=== PATIENT | male | born 1975 | race Caucasian/White ===

== ENCOUNTER 2016-10-11 19:32 | Inpatient (IN) | payer BC ==
[2016-10-11] MEDS ORDERED: Ketorolac 30 MG/ML SDV IVPUSH ONE (19:37)
[2016-10-11] MEDS ORDERED: Famotidine 20 MG/2 ML SDV IVPUSH ONE (19:37)
[2016-10-11] MEDS ORDERED: Nitroglycerin 0.4 MG Tab.SL SL ONE (19:37)
[2016-10-11] MEDS ORDERED: Sodium Chloride 0.9% 2.5 ML Syringe FLUSH PRN (19:37)
[2016-10-11] MEDS ORDERED: Aspirin 81 MG Tab.Chew PO ONE (19:37)
[2016-10-11] MEDS ORDERED: Sodium Chloride 0.9% 1,000 ML IV ONE (19:44)
[2016-10-11] MEDS: Alum Hydrox/Mag Hydrox/Simeth 15 ML, Metoclopramide 5 MG, Lidocaine 2% 5 ML PO ONE ×6 (19:44→20:03)
--- NOTE | 2016-10-11 19:46 | EDM.PDOC ---
ED HPI GENERAL MEDICAL PROBLEM - General Chief Complaint: Chest Pain Stated Complaint: CHEST PAIN, UPPER ABDOMINAL PAIN Time Seen by Provider: 10/11/16 19:46 Source of Information: Reports: Patient History Limitations: Reports: No Limitations - History of Present Illness INITIAL COMMENTS - FREE TEXT/NARRATIVE: History of present illness: 47-year-old male presenting with acute onset of upper right quadrant pain. Patient indicates he has a history of pancreatitis and this pain is in the same area but it is also in his chest he indicates it feels like a poker stabbing through him. Review of systems: As per history of present illness and below otherwise all systems reviewed and negative. Past medical history: As per history of present illness and as reviewed below otherwise noncontributory. Surgical history: As per history of present illness and as reviewed below otherwise noncontributory. Social history: No reported history of drug or alcohol abuse. Family history: As per history of present illness and as reviewed below otherwise noncontributory. Physical exam: HEENT: Atraumatic, normocephalic, pupils reactive, negative for conjunctival pallor or scleral icterus, mucous membranes moist, throat clear, neck supple, nontender, trachea midline. Lungs: Clear to auscultation, breath sounds equal bilaterally, chest nontender. Heart: S1S2, regular, negative for clicks, rubs, or JVD. Abdomen: Soft, exquisite tenderness in bilateral upper quads radiating up into the chest, Negative for masses or hepatosplenomegaly. Negative for costovertebral tenderness. Pelvis: Stable nontender. Genitourinary: Deferred. Rectal: Deferred. Extremities: Atraumatic, negative for cords or calf pain. Neurovascular unremarkable. Neuro: Awake, alert, oriented. Cranial nerves II through XII unremarkable. Cerebellum unremarkable. Motor and sensory unremarkable throughout. Exam nonfocal. CT positive for pancreatitis Diagnostics: [CBC, CMP, amylase, lipase, CT of the abdomen and chest] Therapeutics: [IV fluid, Dilaudid, Toradol] Impression: [Increased tightness] Plan: [[facility] and IV fluids as well as pain management] Definitive disposition and diagnosis as appropriate pending reevaluation and review of above. Epigastric Pain Score (Numeric/FACES): 8 - Related Data Allergies Allergy/AdvReac Type Severity Reaction Status Date / Time No Known Allergies Allergy Verified 10/11/16 19:38 Home Meds: Home Meds Omeprazole Magnesium [Prilosec Otc] 20 mg PO DAILY 10/11/16 [History] Past Medical History Gastrointestinal History: Reports: Pancreatitis - Past Surgical History GI Surgical History: Reports: Cholecystectomy Social & Family History - Family History GI: Reports: Pancreatitis - Tobacco Use Smoking Status *Q: Current Every Day Smoker Years of Tobacco use: 20 Packs/Tins Daily: 1 - Caffeine Use Caffeine Use: Reports: Coffee - Recreational Drug Use Recreational Drug Use: No ED ROS GENERAL - Review of Systems Review Of Systems: See Below (See history of present illness) ED EXAM, GENERAL - Physical Exam Exam: See Below (See history of present illness) Course - Vital Signs Last Recorded V/S: Last Vital Signs Temp 36.4 C 10/11/16 19:38 Pulse 82 10/11/16 21:02 Resp 19 10/11/16 21:02 BP 154/104 H 10/11/16 21:02 Pulse Ox 95 10/11/16 21:02 - Orders/Labs/Meds Orders: Active Orders 24 hr Category Date Time Status Cardiac Monitoring [RC] . DIRECTED Care 10/11/16 19:37 Active EKG Documentation Completion [RC] STAT Care 10/11/16 19:38 Active Abdomen Pelvis w Cont [CT] Stat Exams 10/11/16 20:14 Ordered Chest 1V Frontal [CR] Stat Exams 10/11/16 19:37 Ordered Chest w Cont [CT] Stat Exams 10/11/16 20:35 Ordered UA W/MICROSCOPIC [URIN] Stat Lab 10/11/16 19:37 Uncollected Sodium Chloride 0.9% [Saline Flush] Med 10/11/16 19:37 Active 10 ml FLUSH ASDIRECTED PRN Sodium Chloride 0.9% [Saline Flush] Med 10/11/16 19:37 Active 2.5 ml FLUSH ASDIRECTED PRN Saline Lock Insert [OM.PC] Stat Oth 10/11/16 19:37 Ordered Medication Orders Sodium Chloride (Saline Flush) 10 ml FLUSH ASDIRECTED PRN PRN Reason: Keep Vein Open Last Admin: 10/11/16 19:54 Dose: 10 ml Sodium Chloride (Saline Flush) 2.5 ml FLUSH ASDIRECTED PRN PRN Reason: Keep Vein Open Last Admin: 10/11/16 19:54 Dose: 2.5 ml Labs: Laboratory Tests 10/11/16 10/11/16 10/11/16 Range/Units 19:35 19:35 19:35 WBC 12.46 H (4.0-11.0) K/uL RBC 5.29 (4.50-5.90) M/uL Hgb 16.6 (13.0-17.0) g/dL Hct 47.0 (38.0-50.0) % MCV 88.8 (80.0-98.0) fL MCH 31.4 (27.0-32.0) pg MCHC 35.3 (31.0-37.0) g/dL RDW Std Deviation 41.6 (28.0-62.0) fl RDW Coeff of Gabby 13 (11.0-15.0) % Plt Count 301 (150-400) K/uL MPV 9.80 (7.40-12.00) fL Neut % (Auto) 55.6 (48.0-80.0) % Lymph % (Auto) 35.6 (16.0-40.0) % [place] % (Auto) 7.1 (0.0-15.0) % Eos % (Auto) 1.4 (0.0-7.0) % Baso % (Auto) 0.3 (0.0-1.5) % Neut # (Auto) 6.9 H (1.4-5.7) K/uL Lymph # (Auto) 4.4 H (0.6-2.4) K/uL [place] # (Auto) 0.9 H (0.0-0.8) K/uL Eos # (Auto) 0.2 (0.0-0.7) K/uL Baso # (Auto) 0.0 (0.0-0.1) K/uL Nucleated RBC % 0.0 /100WBC Nucleated RBCs # 0 K/uL Sodium 142 (136-146) mmol/L Potassium 4.2 (3.5-5.1) mmol/L Chloride 109 (98-110) mmol/L Carbon Dioxide 23 (21-31) mmol/L BUN 11 (6.0-23.0) mg/dL Creatinine 1.1 (0.6-1.5) mg/dL Est Cr Clr Drug Dosing 64.11 mL/min Estimated GFR (MDRD) > 60.0 ml/min Glucose 103 (60-110) mg/dL Calcium 9.7 (8.8-10.8) mg/dL Total Bilirubin 0.5 (0.1-1.5) mg/dL AST 17 (5-40) IU/L ALT 27 (8-54) IU/L Alkaline Phosphatase 100 (40-150) Troponin I < 0.10 (0.0-0.29) NG/ML Total Protein 8.2 H (6.0-8.0) g/dL Albumin 4.8 (3.5-5.0) g/dL Globulin 3.4 (2.0-3.5) g/dL Albumin/Globulin Ratio 1.4 (1.3-2.8) Amylase 66 (10-90) U/L Lipase 289 H (7-80) U/L Meds: Medications Generic Name Dose Route Start Last Admin Trade Name Freq PRN Reason Stop Dose Admin Sodium Chloride 10 ml 10/11/16 19:37 10/11/16 21:01 Saline Flush FLUSH 10 ml ASDIRECTED PRN Administration Keep Vein Open Sodium Chloride 2.5 ml 10/11/16 19:37 10/11/16 19:54 Saline Flush FLUSH 2.5 ml ASDIRECTED PRN Administration Keep Vein Open Discontinued Medications Generic Name Dose Route Start Last Admin Trade Name Freq PRN Reason Stop Dose Admin Aspirin 324 mg 10/11/16 19:37 10/11/16 19:44 Aspirin PO 10/11/16 19:38 324 mg ONETIME ONE Administration Al Hydroxide/Mg Hydroxide 15 0 ml 10/11/16 19:37 10/11/16 20:03 ml/ Metoclopramide HCl 5 mg/ PO 10/11/16 19:38 Not Given Lidocaine HCl 5 ml ONETIME ONE Famotidine 20 mg 10/11/16 19:37 10/11/16 19:46 Pepcid IVPUSH 10/11/16 19:38 20 mg ONETIME ONE Administration Fentanyl 50 mcg 10/11/16 19:54 10/11/16 20:01 Sublimaze IVPUSH 10/11/16 19:55 50 mcg ONETIME ONE Administration Hydromorphone HCl 2 mg 10/11/16 20:55 10/11/16 21:00 Dilaudid IVPUSH 10/11/16 20:56 2 mg ONETIME ONE Administration Sodium Chloride 1,000 mls @ 999 mls/hr 10/11/16 19:44 10/11/16 19:48 Normal Saline IV 10/11/16 20:44 999 mls/hr .BOLUS ONE Administration Iopamidol 100 ml 10/11/16 20:25 10/11/16 20:26 Isovue Multipack-370 (76%) IVPUSH 10/11/16 20:26 100 ml ONETIME STA Administration Ketorolac Tromethamine 30 mg 10/11/16 19:37 10/11/16 19:46 Toradol IVPUSH 10/11/16 19:38 30 mg ONETIME ONE Administration Nitroglycerin 0.4 mg 10/11/16 19:37 10/11/16 19:52 Nitrostat SL 10/11/16 19:38 0.4 mg ONETIME ONE Administration Ondansetron HCl 4 mg 10/11/16 19:47 10/11/16 19:49 Zofran IVPUSH 10/11/16 19:48 4 mg ONETIME ONE Administration Departure - Departure Time of Disposition: 21:49 Disposition: Refer to Observation Condition: Good Clinical Impression: Pancreatitis - Discharge Information Forms: ED Department Discharge - My Orders Last 24 Hours: My Active Orders 10/11/16 19:37 Cardiac Monitoring [RC] . DIRECTED Chest 1V Frontal [CR] Stat UA W/MICROSCOPIC [URIN] Stat Sodium Chloride 0.9% [Saline Flush] 10 ml FLUSH ASDIRECTED PRN Sodium Chloride 0.9% [Saline Flush] 2.5 ml FLUSH ASDIRECTED PRN Saline Lock Insert [OM.PC] Stat 10/11/16 19:38 EKG Documentation Completion [RC] STAT 10/11/16 20:14 Abdomen Pelvis w Cont [CT] Stat 10/11/16 20:35 Chest w Cont [CT] Stat - Assessment/Plan Last 24 Hours: My Active Orders 10/11/16 19:37 Cardiac Monitoring [RC] . DIRECTED Chest 1V Frontal [CR] Stat UA W/MICROSCOPIC [URIN] Stat Sodium Chloride 0.9% [Saline Flush] 10 ml FLUSH ASDIRECTED PRN Sodium Chloride 0.9% [Saline Flush] 2.5 ml FLUSH ASDIRECTED PRN Saline Lock Insert [OM.PC] Stat 10/11/16 19:38 EKG Documentation Completion [RC] STAT 10/11/16 20:14 Abdomen Pelvis w Cont [CT] Stat 10/11/16 20:35 Chest w Cont [CT] Stat
[2016-10-11] MEDS ORDERED: Ondansetron 4 MG/2 ML SDV IVPUSH ONE (19:47)
[2016-10-11] MEDS ORDERED: fentaNYL 100 MCG/2 ML SDV IVPUSH ONE (19:54)
[2016-10-11] MEDS: Sodium Chloride 0.9% 10 ML Syringe FLUSH PRN ×3 (19:54→21:01)
[2016-10-11 20:11] LABS: CHLORIDE,CL 109 mmol/L (98-110); SODIUM,NA 142 mmol/L (136-146)
[2016-10-11] MEDS ORDERED: Iopamidol 755 MG/ML 500 ML Multipack Bottle IVPUSH STA (20:25)
[2016-10-11] MEDS ORDERED: HYDROmorphone 2 MG/ML Syringe IVPUSH ONE (20:55)
[2016-10-11] MEDS ORDERED: Temazepam 15 MG Cap PO PRN (22:44)
[2016-10-11] MEDS: Sodium Chloride 0.9% 1,000 ML IV SCH (22:56)
[2016-10-11] MEDS: HYDROmorphone 2 MG/ML Syringe IVPUSH PRN (22:56)
[2016-10-12] MEDS: HYDROmorphone 2 MG/ML Syringe IVPUSH PRN ×4 (00:58→08:06)
[2016-10-12] MEDS ORDERED: Sodium Chloride 0.9% 1,000 ML IV ONE (04:58)
[2016-10-12 05:53] LABS: CHLORIDE,CL 111 mmol/L (98-110); SODIUM,NA 140 mmol/L (136-146)
[2016-10-12] MEDS: Sodium Chloride 0.9% 1,000 ML IV SCH ×3 (08:09→23:41)
[2016-10-12] MEDS ORDERED: Ondansetron 4 MG/2 ML SDV IVPUSH PRN (08:22)
[2016-10-12] MEDS: HYDROmorphone/Normal Saline 6 MG/30 ML PCA Vial IV PRN (08:36)
[2016-10-12] MEDS: Pantoprazole 40 MG in Sodium Chloride 0.9% 10 ML IVPUSH SCH ×2 (08:42→21:17)
[2016-10-12] MEDS: Enoxaparin 40 MG/0.4 ML Syringe SUBCUT SCH (09:04)
--- NOTE | 2016-10-12 09:21 | PCM.HP ---
H&P History of Present Illness - General Date of Service: 10/12/16 Admit Problem/Dx: Acute on chronic pancreatitis Source of Information: Patient History Limitations: Reports: No Limitations - History of Present Illness Initial Comments - Free Text/Narative: The patient is a 41-year-old gentleman who is presented to the emergency department yesterday with a complaint of midepigastric abdominal pain. 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 Patient says that he has had approximately 10 episodes of pancreatitis over the past couple years. The patient does have multiple family members who have had pancreectomy secondary to these complications. The patient today says that he has had increasing pain in his epigastric area and he is completely aware of the acute on chronic nature of the pancreatitis. The patient had his gallbladder removed last year and he does not consume alcohol. The patient also has had nausea associated with this as well as very severe pain. The patient has been in his usual state of health up at the present time and normally takes omeprazole chronically. The patient says that he has a doctor in [place] that he sees on a regular basis for his pancreatic issues. The patient has denied any dizziness or lightheadedness. He has had no diarrhea or constipation. No melena. Onset of Symptoms: Reports: Sudden Duration of Symptoms: Reports: Chronic, Getting Worse Location: Reports: Abdomen Quality: Reports: Same as Previous Episode, Sharp, Stabbing Severity: Moderate Improves with: Reports: Medication Worsens with: Reports: Eating Associated Symptoms: Reports: Nausea/Vomiting Epigastric Pain Score (Numeric/FACES): 7 - Related Data Allergies/Adverse Reactions: Allergies Allergy/AdvReac Type Severity Reaction Status Date / Time No Known Allergies Allergy Verified 10/11/16 19:38 Home Medications: Home Meds Omeprazole Magnesium [Prilosec Otc] 20 mg PO DAILY 10/11/16 [History] Past Medical History HEENT History: Reports: None Cardiovascular History: Reports: None Respiratory History: Reports: None Gastrointestinal History: Reports: GERD, Pancreatitis Genitourinary History: Reports: None Musculoskeletal History: Reports: None Neurological History: Reports: None Psychiatric History: Reports: None Endocrine/Metabolic History: Reports: None Hematologic History: Reports: None Oncologic (Cancer) History: Reports: None Dermatologic History: Reports: None - Infectious Disease History Infectious Disease History: Reports: None - Past Surgical History GI Surgical History: Reports: Cholecystectomy Social & Family History - Family History GI: Reports: Pancreatitis - Tobacco Use Smoking Status *Q: Current Every Day Smoker Years of Tobacco use: 20 Packs/Tins Daily: 1 - Caffeine Use Caffeine Use: Reports: Coffee - Recreational Drug Use Recreational Drug Use: No H&P Review of Systems - Review of Systems: Review Of Systems: See Below General: Reports: Malaise, Weakness, Decreased Appetite HEENT: Reports: No Symptoms Pulmonary: Reports: No Symptoms Cardiovascular: Reports: No Symptoms Gastrointestinal: Reports: Abdominal Pain, Decreased Appetite, Nausea Genitourinary: Reports: No Symptoms Musculoskeletal: Reports: No Symptoms Skin: Reports: No Symptoms Psychiatric: Reports: No Symptoms Neurological: Reports: No Symptoms Hematologic/Lymphatic: Reports: No Symptoms Immunologic: Reports: No Symptoms Exam - Exam Exam: See Below - Vital Signs Vital Signs: Last Vital Signs Temp 36.6 C 10/12/16 08:00 Pulse 90 10/12/16 08:00 Resp 16 10/12/16 08:00 BP 133/84 10/12/16 08:00 Pulse Ox 94 L 10/12/16 08:00 Weight: 85.1 kg - Exam Quality Assessment: No: Supplemental Oxygen General: Alert, Oriented, Cooperative, Mild Distress HEENT: Conjunctiva Clear, EACs Clear, Mucosa Moist & Rondo, Nares Patent Neck: Supple, Trachea Midline Lungs: Clear to Auscultation, Normal Respiratory Effort Cardiovascular: Regular Rate, Regular Rhythm Abdomen: Normal Bowel Sounds, Soft, Tenderness. No: Guarding, Rigidity, Rebound Back Exam: Normal Inspection, Full Range of Motion Extremities: Normal Inspection Skin: Warm, Dry, Intact Neurological: Cranial Nerves Intact, Normal Gait Neuro Extensive - Mental Status: Alert, Oriented x3 Psychiatric: Alert, Normal Affect, Normal Mood - Patient Data Lab Results Last 24 hrs: Laboratory Results - last 24 hr 10/12/16 10/12/16 10/12/16 Range/Units 05:22 05:22 08:17 WBC 13.86 H (4.0-11.0) K/uL RBC 4.87 (4.50-5.90) M/uL Hgb 14.8 (13.0-17.0) g/dL Hct 44.2 (38.0-50.0) % MCV 90.8 (80.0-98.0) fL MCH 30.4 (27.0-32.0) pg MCHC 33.5 (31.0-37.0) g/dL RDW Std Deviation 42.8 (28.0-62.0) fl RDW Coeff of Gabby 13 (11.0-15.0) % Plt Count 261 (150-400) K/uL MPV 9.80 (7.40-12.00) fL Neut % (Auto) 64.9 (48.0-80.0) % Lymph % (Auto) 27.3 (16.0-40.0) % [place] % (Auto) 6.7 (0.0-15.0) % Eos % (Auto) 0.9 (0.0-7.0) % Baso % (Auto) 0.2 (0.0-1.5) % Neut # (Auto) 9.0 H (1.4-5.7) K/uL Lymph # (Auto) 3.8 H (0.6-2.4) K/uL [place] # (Auto) 0.9 H (0.0-0.8) K/uL Eos # (Auto) 0.1 (0.0-0.7) K/uL Baso # (Auto) 0.0 (0.0-0.1) K/uL Nucleated RBC % 0.0 /100WBC Nucleated RBCs # 0 K/uL Sodium 140 (136-146) mmol/L Potassium 4.5 (3.5-5.1) mmol/L Chloride 111 H (98-110) mmol/L Carbon Dioxide 25 (21-31) mmol/L BUN 14 (6.0-23.0) mg/dL Creatinine 0.9 (0.6-1.5) mg/dL Est Cr Clr Drug Dosing 111.53 mL/min Estimated GFR (MDRD) > 60.0 ml/min Glucose 97 (60-110) mg/dL Calcium 8.6 L (8.8-10.8) mg/dL Phosphorus 4.0 (2.4-4.7) mg/dL Magnesium 1.9 (1.5-2.3) mEq/L Total Bilirubin 0.4 (0.1-1.5) mg/dL AST 48 H (5-40) IU/L ALT 50 (8-54) IU/L Alkaline Phosphatase 90 (40-150) Lactate Dehydrogenase 184 (125-220) IU/L Total Protein 6.7 (6.0-8.0) g/dL Albumin 4.1 (3.5-5.0) g/dL Globulin 2.6 (2.0-3.5) g/dL Albumin/Globulin Ratio 1.6 (1.3-2.8) Lipase 1179 H (7-80) U/L Urine Color YELLOW Urine Appearance CLEAR Urine pH 5.5 (5.0-8.0) Ur Specific [place] 1.020 (1.001-1.035) Urine Protein NEGATIVE (NEGATIVE) mg/dL Urine Glucose (UA) NEGATIVE (NEGATIVE) mg/dL Urine Ketones NEGATIVE (NEGATIVE) mg/dL Urine Occult Blood NEGATIVE (NEGATIVE) Urine Nitrite NEGATIVE (NEGATIVE) Urine Bilirubin NEGATIVE (NEGATIVE) Urine Urobilinogen 0.2 (<2.0) EU/dL Ur Leukocyte Esterase NEGATIVE (NEGATIVE) Urine RBC 0-1 (0-2/HPF) Urine WBC 0-2 (0-5/HPF) Ur Epithelial Cells RARE (NONE-FEW) Amorphous Sediment RARE (NEGATIVE) Urine Bacteria RARE (NEGATIVE) Result Diagrams: 10/12/16 05:22 10/12/16 05:22 *Q Meaningful Use (ADM) - VTE *Q VTE Criteria *Q: - VTE Risk Assess *Q Each Risk Factor Represents 1 Point: Age 41 - 59 years Total Score 1 Point Risk Factors: 1 - Stroke *Q Stroke Criteria *Q: - AMI *Q AMI Criteria *Q: - Problem List (1) Pancreatitis, recurrent SNOMED Code(s): 283213034 ICD Code: K86.1 - OTHER CHRONIC PANCREATITIS Status: Acute Priority: High Current Visit: Yes Problem Details: Acute on chronic, nonalcoholic non- gallbladder, pancreatic divisum (2) Leukocytosis SNOMED Code(s): 436120061, 285631010 ICD Code: D72.829 - ELEVATED WHITE BLOOD CELL COUNT, UNSPECIFIED Status: Acute Priority: High Current Visit: Yes Problem List Initiated/Reviewed/Updated: Yes Orders Last 24hrs: Active Orders 24 hr Category Date Time Status Admission Status [Patient Status] [ADT] Routine ADT 10/11/16 22:15 Active Patient Status [ADT] Routine ADT 10/12/16 08:39 Active Ambulate [RC] PER UNIT ROUTINE Care 10/12/16 08:40 Active Oxygen Therapy [RC] PRN Care 10/12/16 08:39 Active Up ad Janet [RC] ASDIRECTED Care 10/12/16 08:39 Active VTE/DVT Education [RC] PER UNIT ROUTINE Care 10/12/16 08:39 Active Vital Signs [RC] Q4H Care 10/12/16 08:39 Active NPO [Nothing Per Oral Diet] [DIET] Diet 10/11/16 Dinner Active Nothing per Oral Now Diet [DIET] Diet 10/12/16 Lunch Active Enoxaparin [Lovenox] Med 10/12/16 09:00 Active 40 mg SUBCUT DAILY HYDROmorphone/Normal Saline [Dilaudid HOME CARE LIAISON 6 MG in NS 30 Med 10/12/16 08:19 Active ML] 6 mg IV ASDIRECTED PRN Ondansetron [Zofran] Med 10/12/16 08:22 Active 4 mg IVPUSH Q4H PRN Pantoprazole [ProTONIX IV] 40 mg Med 10/12/16 09:00 Active Sodium Chloride 0.9% [Normal Saline] 10 ml IVPUSH BID Sodium Chloride 0.9% [Normal Saline] 1,000 ml Med 10/11/16 22:45 Active IV ASDIRECTED Temazepam [Restoril] Med 10/11/16 22:44 Active 15 mg PO BEDTIME PRN Resuscitation Status Routine Resus Stat 10/12/16 08:39 Ordered Medication Orders Enoxaparin Sodium (Lovenox) 40 mg SUBCUT DAILY [facility] Last Admin: 10/12/16 09:04 Dose: 40 mg Hydromorphone HCl (Dilaudid [employer] 6 Mg In Ns 30 Ml) 6 mg IV ASDIRECTED PRN; Protocol PRN Reason: Pain Last Admin: 10/12/16 08:36 Dose: 6 mg Sodium Chloride (Normal Saline) 1,000 mls @ 125 mls/hr IV ASDIRECTED MARYLOU Last Admin: 10/12/16 08:09 Dose: 125 mls/hr Infusion: 10/12/16 06:56 Dose: 125 mls/hr Admin: 10/11/16 22:56 Dose: 125 mls/hr Pantoprazole Sodium 40 mg/ (Sodium Chloride) 10 mls @ 300 mls/hr IVPUSH BID MARYLOU Last Admin: 10/12/16 08:42 Dose: 300 mls/hr Ondansetron HCl (Zofran) 4 mg IVPUSH Q4H PRN PRN Reason: Nausea Last Admin: 10/12/16 08:42 Dose: 4 mg Sodium Chloride (Saline Flush) 10 ml FLUSH ASDIRECTED PRN PRN Reason: Keep Vein Open Last Admin: 10/11/16 21:01 Dose: 10 ml Admin: 10/11/16 21:00 Dose: 10 ml Admin: 10/11/16 19:54 Dose: 10 ml Sodium Chloride (Saline Flush) 2.5 ml FLUSH ASDIRECTED PRN PRN Reason: Keep Vein Open Last Admin: 10/11/16 19:54 Dose: 2.5 ml Temazepam (Restoril) 15 mg PO BEDTIME PRN PRN Reason: Sleep Assessment/Plan Comment:: October 12, 2016: The patient is a 41-year-old gentleman who has acute on chronic pancreatitis not related to gallstones or alcohol consumption. The patient will be admitted synonym patient. I've ordered IV fluid resuscitation 125 mL per hour of normal saline. Because of the patient's pain I placed him on a Dilaudid HOME CARE LIAISON to help gain control of his abdominal pain. The patient's lipase has risen to over 1100 and this will be followed. I've explained to the patient that if he has had significant improvement, no nausea or vomiting and his leukocytosis has trended downward that he should be appropriate for discharge and possibly 2- 3 days. For now the patient will be monitored very closely and kept nothing by mouth. Tomorrow perhaps can introduce clear liquid diet. The patient does have a history of multiple episodes of acute on chronic pancreatitis and he is very familiar with the prognosis. Also I have placed the patient on 40 mg of Protonix IV every 8 hours. The patient will have his overall treatment plan adjusted as conditions and information indicates. I've encouraged ambulation for the patient. Also, I've recommended that the patient follow-up with his specialist in [place] upon return.
--- NOTE | 2016-10-12 09:44 | CR ---
EXAM DATE: 10/11/16 PATIENT'S AGE: 41 Patient: SAL CARROLL Facility: [place], [place] Site . Site : 06/14/1969 Study: XRay Chest [id number]/10/[id number] 8:14:16 PM Ordering Physician: Doctor Woods Final Report: INDICATION: Chest pain TECHNIQUE: Chest radiograph 1 view COMPARISON: None FINDINGS: Cardiovascular and mediastinum: The heart silhouette is normal in size and morphology. The mediastinum is normal in appearance. Lungs and pleural spaces: Ill-defined increased density seen in the right lung base with a sharply marginated lateral border. No sign of pleural effusion seen. No pneumothorax is identified. Bones and soft tissues: No significant findings. IMPRESSION: 1. Ill-defined increased density seen in the right lung base with a sharply marginated lateral border. This may represent a region of atelectasis or pneumonic infiltrate. Assessment with chest CT may be helpful. Dictated by Jet Dixon MD @ 10/11/2016 8:29:00 PM Dictated by: Jet Dixon MD @ 10/11/2016 20:29:06 (Electronic Signature) Report Signed by Proxy. DARLINE
--- NOTE | 2016-10-12 09:45 | CT ---
EXAM DATE: 10/11/16 PATIENT'S AGE: 41 Patient: SAL CARROLL Facility: [place], [place] Site . Site : 1975 Study: CT Chest [id number]/10/2017 8:55:24 PM Ordering Physician: Doctor Woods Final Report: INDICATION: Severe upper abdominal pain for 2-3 hours TECHNIQUE: CT chest was acquired with IV contrast. COMPARISON: Chest radiograph same date FINDINGS: Cardiovascular structures: Heart size is normal. Thoracic aorta and main pulmonary artery are normal in caliber. Mediastinum and roseanna: 1.5 cm right hilar lymph node. Shotty subcarinal and AP window lymph nodes. 1.1 cm left hilar lymph node. Small hiatal hernia. Lungs: Subpleural blebs. 0.5 cm pulmonary nodule in the right middle lobe best seen on image 59 series 203. 0.4 cm pulmonary nodule right upper lobe on image 16 series 203. Linear atelectasis or scarring in both lower lobes. Pleura and pericardium: No effusions. Chest wall and axilla: No mass or adenopathy. Upper abdomen: S/p cholecystectomy. Fat stranding around the pancreatic head and proximal body. No peripancreatic fluid identified in the visualized portion of the abdomen. Hepatic steatosis. Bones: No significant findings. IMPRESSION: 1. Acute pancreatitis. 2. No acute intrathoracic abnormality. 3. 2 right pulmonary nodules. Followup per Fleischner society guidelines recommended, as listed below. 4. Bilateral hilar adenopathy. Comparison with any prior chest CT is recommended. 5. Hepatic steatosis. 6. Status post cholecystectomy. 7. Small hiatal hernia. Please note that all CT scans at this facility use dose modulation, iterative reconstruction, and/or weight-based dosing when appropriate to reduce radiation dose to as low as reasonably achievable. Dictated by Klaudia Gilmore MD @ Oct 11 2016 9:04PM (Electronic Signature) Report Signed by Proxy. [facility]
--- NOTE | 2016-10-12 09:46 | CT ---
EXAM DATE: 10/11/16 PATIENT'S AGE: 41 Patient: SAL CARROLL Facility: [place], [place] Site . Site : 1975 Study: CT Abdomen/Pelvis [id number]/10/2017 9:03:42 PM Ordering Physician: Doctor Woods Final Report: INDICATION: Upper abdominal pain TECHNIQUE: CT abdomen and pelvis acquired with IV contrast. COMPARISON: None FINDINGS: Lower chest: Linear atelectasis or scarring in the lower lobes bilaterally. Small hiatal hernia. Liver: Hepatic steatosis. There are ill-defined areas of hypodensity in the liver likely due to transient hepatic attenuation differences. Spleen: Unremarkable. Pancreas: Fat stranding around the pancreatic head and proximal pancreatic body. No peripancreatic fluid collection. Homogeneous enhancement of the pancreas. The splenic vein is patent. Gallbladder and bile ducts: Status post cholecystectomy. Adrenal glands: Unremarkable. Kidneys: Unremarkable. GI tract: Minimal colonic diverticulosis. Vascular structures: Unremarkable. Lymph nodes: Unremarkable. Miscellaneous: Unremarkable. No free air or significant free fluid. Pelvic Organs: Unremarkable. Bones: Unremarkable for age. IMPRESSION: Acute pancreatitis. No peripancreatic pseudocyst. Hepatic steatosis. Minimal colonic diverticulosis. Small hiatal hernia. Status post cholecystectomy. Please note that all CT scans at this facility use dose modulation, iterative reconstruction, and/or weight-based dosing when appropriate to reduce radiation dose to as low as reasonably achievable. Dictated by Klaudia Gilmore MD @ Oct 11 2016 9:15PM (Electronic Signature) Report Signed by Proxy. [facility]
[2016-10-12] MEDS ORDERED: Acetaminophen 325 MG Tab PO PRN (11:51)
[2016-10-13 05:53] LABS: CHLORIDE,CL 111 mmol/L (98-110); SODIUM,NA 137 mmol/L (136-146)
[2016-10-13] MEDS: Sodium Chloride 0.9% 1,000 ML IV SCH ×3 (08:00→23:51)
[2016-10-13] MEDS: Enoxaparin 40 MG/0.4 ML Syringe SUBCUT SCH (09:13)
[2016-10-13] MEDS: Pantoprazole 40 MG in Sodium Chloride 0.9% 10 ML IVPUSH SCH ×2 (09:13→21:27)
[2016-10-13] MEDS: HYDROmorphone/Normal Saline 6 MG/30 ML PCA Vial IV PRN (12:40)
--- NOTE | 2016-10-13 13:56 | PCM.PN ---
- General Info Date of Service: 10/13/16 Subjective Update: abdominal discomfort improving Functional Status: Reports: pain controlled - Review of Systems General: Reports: No Symptoms HEENT: Reports: no symptoms Pulmonary: Reports: no symptoms Cardiovascular: Reports: No Symptoms Gastrointestinal: Reports: Abdominal pain Genitourinary: Reports: no symptoms Musculoskeletal: Reports: no symptoms Skin: Reports: no symptoms Neurological: Reports: No Symptoms Psychiatric: Reports: no symptoms - Patient Data Vitals - most recent: Last Vital Signs Temp 98.5 F 10/13/16 12:00 Pulse 85 10/13/16 12:00 Resp 20 10/13/16 12:00 BP 141/94 H 10/13/16 12:00 Pulse Ox 96 10/13/16 12:00 Weight - most recent: 85.1 kg I&O - last 24 hours: Intake & Output 10/12/16 10/13/16 10/13/16 22:59 06:59 14:59 Intake Total 1005 1010 1000 Output Total 700 400 400 Balance 305 610 600 Lab Results last 24 hrs: Laboratory Results - last 24 hr 10/13/16 10/13/16 10/13/16 Range/Units 05:10 05:10 05:10 WBC 11.08 H (4.0-11.0) K/uL RBC 4.52 (4.50-5.90) M/uL Hgb 13.6 (13.0-17.0) g/dL Hct 39.9 (38.0-50.0) % MCV 88.3 (80.0-98.0) fL MCH 30.1 (27.0-32.0) pg MCHC 34.1 (31.0-37.0) g/dL RDW Std Deviation 40.2 (28.0-62.0) fl RDW Coeff of Gabby 13 (11.0-15.0) % Plt Count 230 (150-400) K/uL MPV 9.70 (7.40-12.00) fL Neut % (Auto) 75.3 (48.0-80.0) % Lymph % (Auto) 17.8 (16.0-40.0) % [place] % (Auto) 5.7 (0.0-15.0) % Eos % (Auto) 1.0 (0.0-7.0) % Baso % (Auto) 0.2 (0.0-1.5) % Neut # (Auto) 8.4 H (1.4-5.7) K/uL Lymph # (Auto) 2.0 (0.6-2.4) K/uL [place] # (Auto) 0.6 (0.0-0.8) K/uL Eos # (Auto) 0.1 (0.0-0.7) K/uL Baso # (Auto) 0.0 (0.0-0.1) K/uL Nucleated RBC % 0.0 /100WBC Nucleated RBCs # 0 K/uL Sodium 137 (136-146) mmol/L Potassium 3.9 (3.5-5.1) mmol/L Chloride 111 H (98-110) mmol/L Carbon Dioxide 19 L (21-31) mmol/L BUN 10 (6.0-23.0) mg/dL Creatinine 0.8 (0.6-1.5) mg/dL Est Cr Clr Drug Dosing 125.47 mL/min Estimated GFR (MDRD) > 60.0 ml/min Glucose 72 (60-110) mg/dL Calcium 8.1 L (8.8-10.8) mg/dL Phosphorus 2.9 (2.4-4.7) mg/dL Magnesium 1.6 (1.5-2.3) mEq/L Total Bilirubin 0.5 (0.1-1.5) mg/dL AST 33 (5-40) IU/L ALT 69 H (8-54) IU/L Alkaline Phosphatase 94 (40-150) Total Protein 5.8 L (6.0-8.0) g/dL Albumin 3.6 (3.5-5.0) g/dL Globulin 2.2 (2.0-3.5) g/dL Albumin/Globulin Ratio 1.6 (1.3-2.8) Lipase 647 H (7-80) U/L Med Orders - Current: Current Medications Acetaminophen (Tylenol) 650 mg PO Q6H PRN PRN Reason: Headache Last Admin: 10/12/16 12:19 Dose: 650 mg Enoxaparin Sodium (Lovenox) 40 mg SUBCUT DAILY MARYLOU Last Admin: 10/13/16 09:13 Dose: 40 mg Hydromorphone HCl (Dilaudid Script Editor 6 Mg In Ns 30 Ml) 6 mg IV ASDIRECTED PRN; Protocol PRN Reason: Pain Last Admin: 10/13/16 12:40 Dose: 6 mg Sodium Chloride (Normal Saline) 1,000 mls @ 125 mls/hr IV ASDIRECTED MARYLOU Last Admin: 10/13/16 08:00 Dose: 125 mls/hr Pantoprazole Sodium 40 mg/ (Sodium Chloride) 10 mls @ 300 mls/hr IVPUSH BID MARYLOU Last Admin: 10/13/16 09:13 Dose: 300 mls/hr Ondansetron HCl (Zofran) 4 mg IVPUSH Q4H PRN PRN Reason: Nausea Last Admin: 10/12/16 08:42 Dose: 4 mg Sodium Chloride (Saline Flush) 10 ml FLUSH ASDIRECTED PRN PRN Reason: Keep Vein Open Last Admin: 10/11/16 21:01 Dose: 10 ml Sodium Chloride (Saline Flush) 2.5 ml FLUSH ASDIRECTED PRN PRN Reason: Keep Vein Open Last Admin: 10/11/16 19:54 Dose: 2.5 ml Temazepam (Restoril) 15 mg PO BEDTIME PRN PRN Reason: Sleep Discontinued Medications Aspirin (Aspirin) 324 mg PO ONETIME ONE Stop: 10/11/16 19:38 Last Admin: 10/11/16 19:44 Dose: 324 mg Al Hydroxide/Mg Hydroxide 15 ml/ Metoclopramide HCl 5 mg/Lidocaine HCl 5 ml 0 ml PO ONETIME ONE Stop: 10/11/16 19:38 Last Admin: 10/11/16 20:03 Dose: Not Given Famotidine (Pepcid) 20 mg IVPUSH ONETIME ONE Stop: 10/11/16 19:38 Last Admin: 10/11/16 19:46 Dose: 20 mg Fentanyl (Sublimaze) 50 mcg IVPUSH ONETIME ONE Stop: 10/11/16 19:55 Last Admin: 10/11/16 20:01 Dose: 50 mcg Hydromorphone HCl (Dilaudid) 2 mg IVPUSH ONETIME ONE Stop: 10/11/16 20:56 Last Admin: 10/11/16 21:00 Dose: 2 mg Hydromorphone HCl (Dilaudid) 1 - 2 mg IVPUSH Q2H PRN PRN Reason: Abdominal Pain Last Admin: 10/12/16 08:06 Dose: 1 mg Sodium Chloride (Normal Saline) 1,000 mls @ 999 mls/hr IV .BOLUS ONE Stop: 10/11/16 20:44 Last Admin: 10/11/16 19:48 Dose: 999 mls/hr Sodium Chloride (Normal Saline) 1,000 mls @ 999 mls/hr IV .Bolus ONE Stop: 10/12/16 05:58 Last Admin: 10/12/16 05:04 Dose: 999 mls/hr Iopamidol (Isovue Multipack-370 (76%)) 100 ml IVPUSH ONETIME STA Stop: 10/11/16 20:26 Last Admin: 10/11/16 20:26 Dose: 100 ml Ketorolac Tromethamine (Toradol) 30 mg IVPUSH ONETIME ONE Stop: 10/11/16 19:38 Last Admin: 10/11/16 19:46 Dose: 30 mg Nitroglycerin (Nitrostat) 0.4 mg SL ONETIME ONE Stop: 10/11/16 19:38 Last Admin: 10/11/16 19:52 Dose: 0.4 mg Ondansetron HCl (Zofran) 4 mg IVPUSH ONETIME ONE Stop: 10/11/16 19:48 Last Admin: 10/11/16 19:49 Dose: 4 mg - Exam General: alert, oriented HEENT: Pupils equal, EOMI Neck: supple, trachea midline Lungs: Normal respiratory effort Cardiovascular: Regular Rate, Regular Rhythm Abdomen: no distension, tenderness. No: rigidity, rebound, guarding, distension Extremities: no edema Skin: warm, dry, intact Neurological: no new focal deficit Psy/Mental Status: alert, normal affect, normal mood - Problem List Review Problem List Initiated/Reviewed/Updated: Yes - My Orders Last 24 Hours: My Active Orders 10/13/16 Lunch Full Liquid Diet [DIET] - Plan Plan:: October 12, 2016: The patient is a 41-year-old gentleman who has acute on chronic pancreatitis not related to gallstones or alcohol consumption. The patient will be admitted synonym patient. I've ordered IV fluid resuscitation 125 mL per hour of normal saline. Because of the patient's pain I placed him on a Dilaudid MANAGER INTEGRATION to help gain control of his abdominal pain. The patient's lipase has risen to over 1100 and this will be followed. I've explained to the patient that if he has had significant improvement, no nausea or vomiting and his leukocytosis has trended downward that he should be appropriate for discharge and possibly 2- 3 days. For now the patient will be monitored very closely and kept nothing by mouth. Tomorrow perhaps can introduce clear liquid diet. The patient does have a history of multiple episodes of acute on chronic pancreatitis and he is very familiar with the prognosis. Also I have placed the patient on 40 mg of Protonix IV every 8 hours. The patient will have his overall treatment plan adjusted as conditions and information indicates. I've encouraged ambulation for the patient. Also, I've recommended that the patient follow-up with his specialist in [place] upon return. 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
[2016-10-14 05:49] LABS: CHLORIDE,CL 110 mmol/L (98-110); SODIUM,NA 143 mmol/L (136-146)
[2016-10-14] MEDS: Sodium Chloride 0.9% 1,000 ML IV SCH (07:50)
[2016-10-14] MEDS: Enoxaparin 40 MG/0.4 ML Syringe SUBCUT SCH (08:03)
[2016-10-14] MEDS: Pantoprazole 40 MG in Sodium Chloride 0.9% 10 ML IVPUSH SCH (08:03)
--- NOTE | 2016-10-14 11:14 | PCM.PN ---
- General Info Date of Service: 10/14/16 Functional Status: Reports: pain controlled - Review of Systems General: Reports: No Symptoms HEENT: Reports: no symptoms Pulmonary: Reports: no symptoms Cardiovascular: Reports: No Symptoms Gastrointestinal: Reports: Abdominal pain (improving) Genitourinary: Reports: no symptoms Musculoskeletal: Reports: no symptoms Skin: Reports: no symptoms Neurological: Reports: No Symptoms Psychiatric: Reports: no symptoms - Patient Data Vitals - most recent: Last Vital Signs Temp 97.9 F 10/14/16 08:00 Pulse 67 10/14/16 08:00 Resp 20 10/14/16 08:00 BP 136/87 10/14/16 08:00 Pulse Ox 97 10/14/16 08:00 Weight - most recent: 85.1 kg I&O - last 24 hours: Intake & Output 10/13/16 10/14/16 10/14/16 22:59 06:59 14:59 Intake Total 1610 1313 Balance 1610 1313 Lab Results last 24 hrs: Laboratory Results - last 24 hr 10/14/16 10/14/16 Range/Units 04:31 04:31 WBC 6.62 (4.0-11.0) K/uL RBC 4.51 (4.50-5.90) M/uL Hgb 13.6 (13.0-17.0) g/dL Hct 40.0 (38.0-50.0) % MCV 88.7 (80.0-98.0) fL MCH 30.2 (27.0-32.0) pg MCHC 34.0 (31.0-37.0) g/dL RDW Std Deviation 41.0 (28.0-62.0) fl RDW Coeff of Gabby 13 (11.0-15.0) % Plt Count 269 (150-400) K/uL MPV 10.20 (7.40-12.00) fL Neut % (Auto) 53.9 (48.0-80.0) % Lymph % (Auto) 35.0 (16.0-40.0) % [place] % (Auto) 8.9 (0.0-15.0) % Eos % (Auto) 2.0 (0.0-7.0) % Baso % (Auto) 0.2 (0.0-1.5) % Neut # (Auto) 3.6 (1.4-5.7) K/uL Lymph # (Auto) 2.3 (0.6-2.4) K/uL [place] # (Auto) 0.6 (0.0-0.8) K/uL Eos # (Auto) 0.1 (0.0-0.7) K/uL Baso # (Auto) 0.0 (0.0-0.1) K/uL Nucleated RBC % 0.0 /100WBC Nucleated RBCs # 0 K/uL Sodium 143 (136-146) mmol/L Potassium 4.2 (3.5-5.1) mmol/L Chloride 110 (98-110) mmol/L Carbon Dioxide 26 (21-31) mmol/L BUN 7 (6.0-23.0) mg/dL Creatinine 0.9 (0.6-1.5) mg/dL Est Cr Clr Drug Dosing 111.53 mL/min Estimated GFR (MDRD) > 60.0 ml/min Glucose 101 (60-110) mg/dL Calcium 8.5 L (8.8-10.8) mg/dL Lipase 282 H (7-80) U/L Med Orders - Current: Current Medications Acetaminophen (Tylenol) 650 mg PO Q6H PRN PRN Reason: Headache Last Admin: 10/12/16 12:19 Dose: 650 mg Enoxaparin Sodium (Lovenox) 40 mg SUBCUT DAILY [facility] Last Admin: 10/14/16 08:03 Dose: 40 mg Hydromorphone HCl (Dilaudid Etcher Enameling 6 Mg In Ns 30 Ml) 6 mg IV ASDIRECTED PRN; Protocol PRN Reason: Pain Last Admin: 10/13/16 12:40 Dose: 6 mg Sodium Chloride (Normal Saline) 1,000 mls @ 125 mls/hr IV ASDIRECTED [facility] Last Admin: 10/14/16 07:50 Dose: 125 mls/hr Pantoprazole Sodium 40 mg/ (Sodium Chloride) 10 mls @ 300 mls/hr IVPUSH BID [facility] Last Admin: 10/14/16 08:03 Dose: 300 mls/hr Ondansetron HCl (Zofran) 4 mg IVPUSH Q4H PRN PRN Reason: Nausea Last Admin: 10/12/16 08:42 Dose: 4 mg Sodium Chloride (Saline Flush) 10 ml FLUSH ASDIRECTED PRN PRN Reason: Keep Vein Open Last Admin: 10/11/16 21:01 Dose: 10 ml Sodium Chloride (Saline Flush) 2.5 ml FLUSH ASDIRECTED PRN PRN Reason: Keep Vein Open Last Admin: 10/11/16 19:54 Dose: 2.5 ml Temazepam (Restoril) 15 mg PO BEDTIME PRN PRN Reason: Sleep Discontinued Medications Aspirin (Aspirin) 324 mg PO ONETIME ONE Stop: 10/11/16 19:38 Last Admin: 10/11/16 19:44 Dose: 324 mg Al Hydroxide/Mg Hydroxide 15 ml/ Metoclopramide HCl 5 mg/Lidocaine HCl 5 ml 0 ml PO ONETIME ONE Stop: 10/11/16 19:38 Last Admin: 10/11/16 20:03 Dose: Not Given Famotidine (Pepcid) 20 mg IVPUSH ONETIME ONE Stop: 10/11/16 19:38 Last Admin: 10/11/16 19:46 Dose: 20 mg Fentanyl (Sublimaze) 50 mcg IVPUSH ONETIME ONE Stop: 10/11/16 19:55 Last Admin: 10/11/16 20:01 Dose: 50 mcg Hydromorphone HCl (Dilaudid) 2 mg IVPUSH ONETIME ONE Stop: 10/11/16 20:56 Last Admin: 10/11/16 21:00 Dose: 2 mg Hydromorphone HCl (Dilaudid) 1 - 2 mg IVPUSH Q2H PRN PRN Reason: Abdominal Pain Last Admin: 10/12/16 08:06 Dose: 1 mg Sodium Chloride (Normal Saline) 1,000 mls @ 999 mls/hr IV .BOLUS ONE Stop: 10/11/16 20:44 Last Admin: 10/11/16 19:48 Dose: 999 mls/hr Sodium Chloride (Normal Saline) 1,000 mls @ 999 mls/hr IV .Bolus ONE Stop: 10/12/16 05:58 Last Admin: 10/12/16 05:04 Dose: 999 mls/hr Iopamidol (Isovue Multipack-370 (76%)) 100 ml IVPUSH ONETIME STA Stop: 10/11/16 20:26 Last Admin: 10/11/16 20:26 Dose: 100 ml Ketorolac Tromethamine (Toradol) 30 mg IVPUSH ONETIME ONE Stop: 10/11/16 19:38 Last Admin: 10/11/16 19:46 Dose: 30 mg Nitroglycerin (Nitrostat) 0.4 mg SL ONETIME ONE Stop: 10/11/16 19:38 Last Admin: 10/11/16 19:52 Dose: 0.4 mg Ondansetron HCl (Zofran) 4 mg IVPUSH ONETIME ONE Stop: 10/11/16 19:48 Last Admin: 10/11/16 19:49 Dose: 4 mg - Exam General: alert, oriented HEENT: Pupils equal, EOMI Neck: supple, trachea midline Lungs: Clear to auscultation, Normal respiratory effort Cardiovascular: Regular Rate, Regular Rhythm Abdomen: bowel sounds present, tenderness (episgastric region) Back Exam: Normal Inspection Extremities: no edema - Problem List Review Problem List Initiated/Reviewed/Updated: Yes - My Orders Last 24 Hours: My Active Orders 10/13/16 Lunch Full Liquid Diet [DIET] 10/14/16 Dinner Regular Diet [DIET] 10/15/16 05:11 BASIC METABOLIC PANEL,BMP [CHEM] AM CBC WITH AUTO DIFF [HEME] AM LIPASE [CHEM] AM 10/16/16 05:11 BASIC METABOLIC PANEL,BMP [CHEM] AM CBC WITH AUTO DIFF [HEME] AM 10/17/16 05:11 BASIC METABOLIC PANEL,BMP [CHEM] AM CBC WITH AUTO DIFF [HEME] AM - Plan Plan:: October 12, 2016: The patient is a 41-year-old gentleman who has acute on chronic pancreatitis not related to gallstones or alcohol consumption. The patient will be admitted synonym patient. I've ordered IV fluid resuscitation 125 mL per hour of normal saline. 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 The patient's lipase has risen to over 1100 and this will be followed. I've explained to the patient that if he has had significant improvement, no nausea or vomiting and his leukocytosis has trended downward that he should be appropriate for discharge and possibly 2- 3 days. For now the patient will be monitored very closely and kept nothing by mouth. Tomorrow perhaps can introduce clear liquid diet. The patient does have a history of multiple episodes of acute on chronic pancreatitis and he is very familiar with the prognosis. Also I have placed the patient on 40 mg of Protonix IV every 8 hours. The patient will have his overall treatment plan adjusted as conditions and information indicates. I've encouraged ambulation for the patient. Also, I've recommended that the patient follow-up with his specialist in [place] upon return. 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 WBC wnl lipase trending down to 282 anticipate discharge today or tomorrow.
[2016-10-14] MEDS: HYDROmorphone/Normal Saline 6 MG/30 ML PCA Vial IV PRN (11:44)
[2016-10-14 13:00] VITALS: BP 140/92
[2016-10-14] MEDS ORDERED: oxyCODONE 5 MG Tab PO PRN (13:35)
--- NOTE | 2016-10-14 15:28 | PCM.DCSUM1 ---
Discharge Summary - Discharge Data Discharge Date: 10/14/16 Discharge Disposition: Home, Self-Care 01 Condition: Good - Patient Instructions Diet: Drink 8-10+ Glasses/Day, No Alcoholic Beverages Activity: As Tolerated Driving: Do Not Drive Showering/Bathing: May Shower Notify Provider of: Fever, Increased Pain, Swelling and Redness, Drainage, Nausea and/or Vomiting - Discharge Plan Prescriptions/Med Rec: oxyCODONE 5 mg PO Q4H PRN #20 tablet PRN Reason: Abdominal Pain Home Medications: Home Meds Omeprazole Magnesium [Prilosec Otc] 20 mg PO DAILY 10/11/16 [History] oxyCODONE 5 mg PO Q4H PRN #20 tablet 10/14/16 [Rx] Patient Handouts: Acute Pancreatitis, [id number], Oxycodone tablets or capsules - General Info Date of Service: 10/14/16 Functional Status: Reports: pain controlled, tolerating diet, ambulating, urinating - Review of Systems General: Reports: No Symptoms HEENT: Reports: no symptoms Pulmonary: Reports: no symptoms Cardiovascular: Reports: No Symptoms Gastrointestinal: Reports: No symptoms Genitourinary: Reports: no symptoms Musculoskeletal: Reports: no symptoms Skin: Reports: no symptoms Neurological: Reports: No Symptoms Psychiatric: Reports: no symptoms - Patient Data Vitals - Most Recent: Last Vital Signs Temp 97.7 F 10/14/16 13:06 Pulse 90 10/14/16 13:06 Resp 18 10/14/16 13:06 BP 140/92 H 10/14/16 13:06 Pulse Ox 96 10/14/16 13:06 Weight - Most Recent: 85.1 kg I&O - Last 24 hours: Intake & Output 10/14/16 10/14/16 10/14/16 06:59 14:59 22:59 Intake Total 1313 Balance 1313 Lab Results - Last 24 hrs: Laboratory Results - last 24 hr 10/14/16 10/14/16 Range/Units 04:31 04:31 WBC 6.62 (4.0-11.0) K/uL RBC 4.51 (4.50-5.90) M/uL Hgb 13.6 (13.0-17.0) g/dL Hct 40.0 (38.0-50.0) % MCV 88.7 (80.0-98.0) fL MCH 30.2 (27.0-32.0) pg MCHC 34.0 (31.0-37.0) g/dL RDW Std Deviation 41.0 (28.0-62.0) fl RDW Coeff of Gabby 13 (11.0-15.0) % Plt Count 269 (150-400) K/uL MPV 10.20 (7.40-12.00) fL Neut % (Auto) 53.9 (48.0-80.0) % Lymph % (Auto) 35.0 (16.0-40.0) % [place] % (Auto) 8.9 (0.0-15.0) % Eos % (Auto) 2.0 (0.0-7.0) % Baso % (Auto) 0.2 (0.0-1.5) % Neut # (Auto) 3.6 (1.4-5.7) K/uL Lymph # (Auto) 2.3 (0.6-2.4) K/uL [place] # (Auto) 0.6 (0.0-0.8) K/uL Eos # (Auto) 0.1 (0.0-0.7) K/uL Baso # (Auto) 0.0 (0.0-0.1) K/uL Nucleated RBC % 0.0 /100WBC Nucleated RBCs # 0 K/uL Sodium 143 (136-146) mmol/L Potassium 4.2 (3.5-5.1) mmol/L Chloride 110 (98-110) mmol/L Carbon Dioxide 26 (21-31) mmol/L BUN 7 (6.0-23.0) mg/dL Creatinine 0.9 (0.6-1.5) mg/dL Est Cr Clr Drug Dosing 111.53 mL/min Estimated GFR (MDRD) > 60.0 ml/min Glucose 101 (60-110) mg/dL Calcium 8.5 L (8.8-10.8) mg/dL Lipase 282 H (7-80) U/L Med Orders - Current: Current Medications Acetaminophen (Tylenol) 650 mg PO Q6H PRN PRN Reason: Headache Last Admin: 10/12/16 12:19 Dose: 650 mg Enoxaparin Sodium (Lovenox) 40 mg SUBCUT DAILY MARYLOU Last Admin: 10/14/16 08:03 Dose: 40 mg Pantoprazole Sodium 40 mg/ (Sodium Chloride) 10 mls @ 300 mls/hr IVPUSH BID [facility] Last Admin: 10/14/16 08:03 Dose: 300 mls/hr Ondansetron HCl (Zofran) 4 mg IVPUSH Q4H PRN PRN Reason: Nausea Last Admin: 10/12/16 08:42 Dose: 4 mg Oxycodone HCl (Oxycodone) 5 mg PO Q4H PRN PRN Reason: Pain Last Admin: 10/14/16 15:01 Dose: 5 mg Sodium Chloride (Saline Flush) 10 ml FLUSH ASDIRECTED PRN PRN Reason: Keep Vein Open Last Admin: 10/11/16 21:01 Dose: 10 ml Sodium Chloride (Saline Flush) 2.5 ml FLUSH ASDIRECTED PRN PRN Reason: Keep Vein Open Last Admin: 10/11/16 19:54 Dose: 2.5 ml Temazepam (Restoril) 15 mg PO BEDTIME PRN PRN Reason: Sleep Discontinued Medications Aspirin (Aspirin) 324 mg PO ONETIME ONE Stop: 10/11/16 19:38 Last Admin: 10/11/16 19:44 Dose: 324 mg Al Hydroxide/Mg Hydroxide 15 ml/ Metoclopramide HCl 5 mg/Lidocaine HCl 5 ml 0 ml PO ONETIME ONE Stop: 10/11/16 19:38 Last Admin: 10/11/16 20:03 Dose: Not Given Famotidine (Pepcid) 20 mg IVPUSH ONETIME ONE Stop: 10/11/16 19:38 Last Admin: 10/11/16 19:46 Dose: 20 mg Fentanyl (Sublimaze) 50 mcg IVPUSH ONETIME ONE Stop: 10/11/16 19:55 Last Admin: 10/11/16 20:01 Dose: 50 mcg Hydromorphone HCl (Dilaudid) 2 mg IVPUSH ONETIME ONE Stop: 10/11/16 20:56 Last Admin: 10/11/16 21:00 Dose: 2 mg Hydromorphone HCl (Dilaudid) 1 - 2 mg IVPUSH Q2H PRN PRN Reason: Abdominal Pain Last Admin: 10/12/16 08:06 Dose: 1 mg Hydromorphone HCl (Dilaudid Territory Manager General Sales 6 Mg In Ns 30 Ml) 6 mg IV ASDIRECTED PRN; Protocol PRN Reason: Pain Last Admin: 10/14/16 11:44 Dose: 6 mg Sodium Chloride (Normal Saline) 1,000 mls @ 999 mls/hr IV .BOLUS ONE Stop: 10/11/16 20:44 Last Admin: 10/11/16 19:48 Dose: 999 mls/hr Sodium Chloride (Normal Saline) 1,000 mls @ 125 mls/hr IV ASDIRECTED MARYLOU Last Admin: 10/14/16 07:50 Dose: 125 mls/hr Sodium Chloride (Normal Saline) 1,000 mls @ 999 mls/hr IV .Bolus ONE Stop: 10/12/16 05:58 Last Admin: 10/12/16 05:04 Dose: 999 mls/hr Iopamidol (Isovue Multipack-370 (76%)) 100 ml IVPUSH ONETIME STA Stop: 10/11/16 20:26 Last Admin: 10/11/16 20:26 Dose: 100 ml Ketorolac Tromethamine (Toradol) 30 mg IVPUSH ONETIME ONE Stop: 10/11/16 19:38 Last Admin: 10/11/16 19:46 Dose: 30 mg Nitroglycerin (Nitrostat) 0.4 mg SL ONETIME ONE Stop: 10/11/16 19:38 Last Admin: 10/11/16 19:52 Dose: 0.4 mg Ondansetron HCl (Zofran) 4 mg IVPUSH ONETIME ONE Stop: 10/11/16 19:48 Last Admin: 10/11/16 19:49 Dose: 4 mg - Exam General: Reports: alert, oriented HEENT: Reports: Pupils equal, EOMI Neck: Reports: supple, trachea midline Lungs: Reports: Clear to auscultation, Normal respiratory effort Cardiovascular: Reports: Regular Rate, Regular Rhythm Abdomen: Reports: bowel sounds present, soft Extremities: Reports: no edema Skin: Reports: warm, dry, intact Neurological: Reports: no new focal deficit Psy/Mental Status: Reports: alert, normal affect, normal mood *Q Meaningful Use (DIS) - VTE *Q VTE Criteria *Q: - Stroke *Q Stroke Criteria *Q: - AMI *Q AMI Criteria *Q:
== END 2016-10-14 15:42 | disposition home or self-care (01) | DRG 282 ==
LOC: MW.ED 19:32 → EDBD 19:32 → MW.ICU 21:52 → OBSVTOIN 22:15 → MW.MS 10-13 10:14
PROVIDERS: ADMIT Internal Medicine; ATTEND Internal Medicine
DX: K85.90 Acute pancreatitis without necrosis or infection, unspecified (principal); K86.1 Other chronic pancreatitis; K21.9 Gastro-esophageal reflux disease without esophagitis; F17.210 Nicotine dependence, cigarettes, uncomplicated; K86.81 Exocrine pancreatic insufficiency
CPT/HCPCS: 36415; 71010; 71010-26; 71260; 71260-26; 74177; 74177-26; 80048; 80053; 81001; 82150; 83615; 83690; 83735; 84100; 84484; 85025; 93005; 96361; 96374; 96375; 99285; 99285-25; A9270-GY; C9113; J1170; J1650; J1885; J2405; J3010; J7040; Q9967